=== PATIENT | female | born 1985 | race Native Hawaiian/Other Pacific Islander ===

== ENCOUNTER 2020-07-10 15:07 | Outpatient (REF) | payer MEDICAID, SELFPAY ==
[2020-07-11 12:44] LABS: BV Int Neg Control Negative (Negative); BV Int Pos Control Positive (Positive)
[2020-07-11 19:17] LABS: C. trachomatis RNA TMA NOT DETECTED (NOT DETECTED); N. gonorrhoeae RNA TMA NOT DETECTED (NOT DETECTED)
[2020-07-14 15:47] LABS: HPV mRNA E6/E7 rflx Not Detected (Not Detected)
== END 2020-07-10 15:08 | disposition home or self-care (01) ==
LOC: HO.LAB 15:07
PROVIDERS: Visit Provider Advanced Practice Midwife
DX: Z01.419 Encounter for gynecological examination (general) (routine) without abnormal findings (principal); B20 Human immunodeficiency virus [HIV] disease; E66.01 Morbid (severe) obesity due to excess calories; Z20.2 Contact with and (suspected) exposure to infections with a predominantly sexual mode of transmission
CPT/HCPCS: 36415; 87480; 87491; 87510; 87591; 87624; 87660; 88141; 88142

== ENCOUNTER 2020-10-17 11:36 | Outpatient (REF) | payer MEDICAID, SELFPAY ==
[2020-10-17 16:16] LABS: CT PCR NOT DETECTED (Not Detect.); NG PCR NOT DETECTED (Not Detect.)
[2020-10-18 12:02] LABS: BV Int Neg Control Negative (Negative); BV Int Pos Control Positive (Positive)
== END 2020-10-17 11:37 | disposition home or self-care (01) ==
LOC: HO.LAB 11:36
PROVIDERS: Visit Provider Advanced Practice Midwife
DX: Z01.419 Encounter for gynecological examination (general) (routine) without abnormal findings (principal); A59.9 Trichomoniasis, unspecified; B20 Human immunodeficiency virus [HIV] disease; Z20.2 Contact with and (suspected) exposure to infections with a predominantly sexual mode of transmission
CPT/HCPCS: 87480; 87491; 87510; 87591; 87660; 99212

== ENCOUNTER 2021-10-21 13:59 | Outpatient (REF) | payer MEDICAID, SELFPAY ==
[2021-10-22 05:14] LABS: CT PCR NOT DETECTED (Not Detect.); NG PCR NOT DETECTED (Not Detect.)
[2021-10-22 15:48] LABS: BV Int Neg Control Negative (Negative); BV Int Pos Control Positive (Positive)
[2021-10-23 17:56] LABS: HPV mRNA E6/E7 rflx Not Detected (Not Detected)
== END 2021-10-21 14:00 | disposition home or self-care (01) ==
LOC: HO.LAB 13:59
PROVIDERS: Visit Provider Advanced Practice Midwife
DX: Z01.411 Encounter for gynecological examination (general) (routine) with abnormal findings (principal); Z11.51 Encounter for screening for human papillomavirus (HPV); Z20.2 Contact with and (suspected) exposure to infections with a predominantly sexual mode of transmission; B20 Human immunodeficiency virus [HIV] disease; E66.01 Morbid (severe) obesity due to excess calories
CPT/HCPCS: 87480; 87491; 87510; 87591; 87624; 87660; 88142

== ENCOUNTER 2022-11-08 15:07 | Outpatient (REF) | payer MEDICAID, SELFPAY ==
--- NOTE | ~2022-11-08 | XR_ITS ---
EXAMINATION: XR SHOULDER, RIGHT CLINICAL INFORMATION: Pain x2 weeks. No injury. COMPARISON: None available. TECHNIQUE: AP external rotation, Grashey, scapular Y, and axillary views of the right shoulder. FINDINGS: There is mild loss of right AC joint space with periarticular spurring. No visible fracture, dislocation or lytic process seen. The glenohumeral joint space is normal. No soft tissue calcification or swelling seen. XR/XR shoulder RT min 2V IMPRESSION: Mild degenerative changes right AC joint. No visible acute fracture or dislocation seen.
== END 2022-11-08 15:08 | disposition home or self-care (01) ==
LOC: HO.HHCX 15:07
PROVIDERS: Visit Provider Internal Medicine
DX: M25.511 Pain in right shoulder (principal)
CPT/HCPCS: 73030

== ENCOUNTER 2023-01-27 15:01 | Outpatient (AMB) | payer MEDICAID, SELFPAY ==
--- NOTE | 2023-01-27 15:12 | A.OFFVIS_ITS ---
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 See her past medical history for issues of concern. She has the Mirena IUD and it in October so she wants to talk about replacing it. She says she is not a sexually active as she used to be and is less interested in having sex and it has been a few months but still she would like protection for prevention. She says her HIV status is really good and she is still undetectable. She sees Dr. Murray at the [facility] now. she is pretty tired because she gets up at 04:30 every morning to go to work at 6 and works till 230 in a [place]. [facility] Medical History Cervical cancer screening HIV disease Surgical History Hx of gastric bypass Family History Mother HTN (hypertension) Maternal Grandmother Pancreatic cancer Social History Alcohol intake: current Alcohol intake frequency: holidays/special occasions only Gender identity: Female Female Reproductive History Menstrual Age of Menarche: 10 control method: none and progestin IUCD Total pregnancies: 2 Full term: 2 Date of last pap smear: 10/22/21 History of abnormal pap smear: Yes Physical Exam Vital Signs: Last Vital Signs BP 134/76 01/27/23 15:13 BMI result Body Mass Index 39.2 Const General: healthy appearing, comfortable, no acute distress, well developed and alert Nutritional Appearance: average body habitus Orientation/consciousness: patient oriented x3 Limitations: no limitations HEENT Head: Yes normocephalic Neck Neck: Yes normal visual inspection Chest Chest palpation & inspection: normal inspection of the chest Breast/axilla inspection: normal inspection of the breasts and normal inspection of the axillae Breast/axilla palpation: normal palpation of the breasts and normal palpation of the axillae Resp Effort & Inspection: normal respiratory effort GI Inspection: Yes normal to inspection, No Abdominal wall edema and No distended Palpation (GI): Soft to palpation and nontender Other: Parous cervix with thin slightly yellowish tinge to clear discharge Mirena strings visible. General: Yes bladder normal to palpation External Female Exam: normal external appearance and normal appearance of the urethra Speculum Exam - Vagina: normal appearance of the vagina, normal palpation and normal vaginal discharge Speculum Exam - Cervix: normal appearance of the cervix, normal palpation and nontender Bimanual exam- vagina & uterus: normal bimanual exam, normal palpation, uterine size normal, bladder normal to palpation, consistency normal, normal palpation, uterine mobility normal, uterine shape normal, No Cervical tenderness present, non-tender and no cervical motion tenderness Bimanual Exam- Adnexa, other: normal adnexae, no masses, normal and No adnexal tenderness Neuro General: patient oriented x3 Assessment & Plan Assessment & Plan (1) Well woman exam with routine gynecological exam: Code(s): Z01.419 - Encounter for gynecological examination (general) (routine) without abnormal findings (2) Potential exposure to STD: Code(s): Z20.2 - Contact with and (suspected) exposure to infections with a predominantly sexual mode of transmission (3) Cervical cancer screening: Comment: HIV +, 07/14/20-pap neg , hpv neg ( trich )-cont yearly screening... Code(s): Z12.4 - Encounter for screening for malignant neoplasm of cervix (4) Well woman exam with routine gynecological exam: Code(s): Z01.419 - Encounter for gynecological examination (general) (routine) without abnormal findings (5) Checking of intrauterine device: Comment: Patient says it is in October will replace at next visit Code(s): Z30.431 - Encounter for routine checking of intrauterine contraceptive device (6) HIV disease: Code(s): B20 - Human immunodeficiency virus [HIV] disease (7) Obesity, morbid, BMI 40.0-49.9: Code(s): E66.01 - Morbid (severe) obesity due to excess calories (8) Family planning counseling: Code(s): Z30.09 - Encounter for other general counseling and advice on contraception Plan -----Discussed in this visit the following: healthy balanced diet, regular and consistent exercise, getting recommended health screens, doing the best she can for her particular health concerns, kegel exercises, pap smear screening and followup recommendations, mammography screening and SBE, normal changes in cycles in her life stage--- discussed her currently undetectable HIV status which is very good. Discussed that it is very common to have less interest in sex as 1 gets older and she is not the only 1. Discussed replacing the Mirena she has had 2 of them and has considered whether not to get her tubes tied but I did tell her that she could in fact use this method of control through menopause.. We will schedule insertion /replacement at her convenience. Discussed signs and symptoms of fertility repeat turning should it stop functioning. Discussed that I will order a mammogram for her because she is about to turn 38 next week. Discussed self-care in general and how hard it can be to get enough sleep when she has to get up so early. Orders: Orders Bacterial Vaginosis Panel Today Z20.2 - Contact with and (suspected) exposure to infections with a predominantly sexual mode of transmission CT NG by PCR Today Z20.2 - Contact with and (suspected) exposure to infections with a predominantly sexual mode of transmission Pap Smear Today Z01.419 - Encounter for gynecological examination (general) (routine) without abnormal findings MM tomosynthesis screening BI Today Z01.419 - Encounter for gynecological examination (general) (routine) without abnormal findings, Z12.4 - Encounter for screening for malignant neoplasm of cervix, Z30.431 - Encounter for routine checking of intrauterine contraceptive device Coding Level of Care Code Est Pt Prev Care 18-39y([id number]) Diagnoses Well woman exam with routine gynecological exam Z01.419 Potential exposure to STD Z20.2 Cervical cancer screening Z12.4 Checking of intrauterine device Z30.431 HIV disease B20 Obesity, morbid, BMI 40.0-49.9 E66.01 Family planning counseling Z30.09
[2023-01-27 15:13] VITALS: BP 134/76; BMI 39.2
== END 2023-01-27 16:13 | disposition home or self-care (01) ==
LOC: HO.HWS 15:01
PROVIDERS: Visit Provider Advanced Practice Midwife
DX: Z01.419 Encounter for gynecological examination (general) (routine) without abnormal findings (principal); Z20.2 Contact with and (suspected) exposure to infections with a predominantly sexual mode of transmission; B20 Human immunodeficiency virus [HIV] disease; E66.01 Morbid (severe) obesity due to excess calories; Z30.09 Encounter for other general counseling and advice on contraception
CPT/HCPCS: 99395

== ENCOUNTER 2023-01-27 15:01 | Outpatient (REF) | payer MEDICAID, SELFPAY ==
[2023-01-27 18:42] LABS: CT PCR NOT DETECTED (Not Detect.); NG PCR NOT DETECTED (Not Detect.)
[2023-01-28 13:21] LABS: BV Int Neg Control Negative (Negative); BV Int Pos Control Positive (Positive)
[2023-02-04 02:14] LABS: HPV mRNA E6/E7 rflx Not Detected (Not Detected)
== END 2023-01-27 15:02 | disposition home or self-care (01) ==
LOC: HO.LNP 15:01
PROVIDERS: Visit Provider Advanced Practice Midwife
DX: Z01.419 Encounter for gynecological examination (general) (routine) without abnormal findings (principal); E66.01 Morbid (severe) obesity due to excess calories; B20 Human immunodeficiency virus [HIV] disease; Z20.2 Contact with and (suspected) exposure to infections with a predominantly sexual mode of transmission; Z79.899 Other long term (current) drug therapy
CPT/HCPCS: 0353U; 87480; 87510; 87624; 87660; 88142; 99395

== ENCOUNTER 2023-02-15 14:29 | Outpatient (REF) | payer MEDICAID, SELFPAY ==
[2023-02-16 09:36] LABS: CT PCR NOT DETECTED (Not Detect.); NG PCR NOT DETECTED (Not Detect.)
[2023-02-16 10:45] LABS: BV Int Neg Control Negative (Negative); BV Int Pos Control Positive (Positive)
== END 2023-02-15 14:30 | disposition home or self-care (01) ==
LOC: HO.LNP 14:29
PROVIDERS: PCP Internal Medicine; Visit Provider Advanced Practice Midwife
DX: B20 Human immunodeficiency virus [HIV] disease (principal); E66.01 Morbid (severe) obesity due to excess calories; Z30.433 Encounter for removal and reinsertion of intrauterine contraceptive device; Z20.2 Contact with and (suspected) exposure to infections with a predominantly sexual mode of transmission; Z79.899 Other long term (current) drug therapy
CPT/HCPCS: 0353U; 58300; 58301; 81025; 87480; 87510; 87660; J7298

== ENCOUNTER 2023-02-15 14:29 | Outpatient (AMB) | payer MEDICAID, SELFPAY ==
[2023-02-15 14:37] VITALS: BP 116/76; BMI 39.7
--- NOTE | 2023-02-15 14:37 | A.OFFVIS_ITS ---
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 Required: No Information Interpreted: non-clinical & clinical Store Operations Specialist: Store Operations Specialist Present (Noemy) Allergies No Known Allergies Allergy (Verified 02/15/23 14:39) Medication List - Last Reconciled 02/15/23 by Re Sweeney CNM [id number]-bleagvml-wdgtkl ala 200-25-25 mg (Odefsey) 1 tab PO DAILY levonorgestrel (Mirena) intrauterine multivitamin (Daily Multi-Vitamin tablet) 1 tab PO DAILY Is last menstrual period known: No Post menopausal: No HPI Mirena replacement/DO NOT RS HPI Details Patient is here for her IUD replacement she has a Mirena this 1 will be her 3rd. She has an 11-year-old and 12-year-old she just turned 38 the other day and she went to the beach for her birthday. She is taking her HIV medication and she is still undetectable. She has no symptoms of bacterial vaginosis so she declined treatment for the Gardnerella and she has no abnormal discharge we will repeat cultures today just to be on the safe side she has no worries at all about other STDs other than the 1 she knows about. [facility] Medical History Cervical cancer screening HIV disease Surgical History Hx of gastric bypass Family History Mother HTN (hypertension) Maternal Grandmother Pancreatic cancer Social History Alcohol intake: current Alcohol intake frequency: holidays/special occasions only Gender identity: Female Female Reproductive History Menstrual Age of Menarche: 10 control method: progestin IUCD Date of last pap smear: 01/28/23 (pending) Physical Exam Vital Signs: Last Vital Signs BP 116/76 02/15/23 14:37 BMI result Body Mass Index 39.7 Other: Cervix parous posterior uterus anterior nontender clear clear discharge which appears very normal Mirena strings visible about 0.5 cm from os see procedure for removal and insertion which went with ease patient did experience pain with the insertion and with the sounding but the procedure went extremely smoothly and there was no resistance or obstruction. External Female Exam: normal external appearance Speculum Exam - Vagina: normal appearance of the vagina and normal vaginal discharge Speculum Exam - Cervix: normal appearance of the cervix Bimanual exam- vagina & uterus: normal bimanual exam, uterine size normal, consistency normal, uterine mobility normal, uterine shape normal and non-tender Bimanual Exam- Adnexa, other: normal adnexae, no masses and No adnexal tenderness Office Procedures IUD Insert/Removal Details Details: ---Patient is here for her IUD removal and insertion. Bimanual exam was done. Her uterus is firm, nontender, and appropriate sized, and is anteverted . The IUD strings were grasped with ring forceps, and as patient coughed the IUD was removed easily with 1 tug. ---The cervix was recleaned with Betadine. Tenaculum was placed on the cervix slowly to minimize cramping. The uterus was sounded slowly and gently she show a measurement of 8 cm. The IUD was removed from its package, after checking identifying information and lot dates and expiration dates and and gently inserted into the os, as per the IUD insertion procedure. The strings were then trimmed to 3-4 centimetres. The tenaculum was removed and gentle pressure applied with a swab, until any bleeding subsided from the tenaculum sites. The speculum was gently removed. The patient sat up. I Reviewed what to expect, and what indications would necessitate a call. Pt to call for fever, untoward pain or cramping. I reviewed any appropriate backup method. Pt to return for recheck as scheduled. 20301-MZV Insertion 28723-OPZ Removal Procedure code (CPT) selection complete Office Ashley Pinto Performing Provider: Re Sweeney CNM Administered by: KENDRA Youssef on 02/15/23 15:15 Dose Route Admin Location Lot Number Expiration Date [place] Weapons Engineer 1 device intrauterine c-obgyn [id number] 04/25/25 [id number] [employer] Results AMB Test Urine AMB Test Urine Negative Last Edit by KENDRA Youssef on 02/15/23 14:45 Results Reviewed Results Reviewed: Laboratory Last Values Tst Clinic Negative 02/15/23 14:45 Name: Maria Luz Castellano Age/Sex: 35/F : 1985 Unit#: [id number] Attend Dr: Re Sweeney CNM Re07/10/20 Status: DEP [facility]: SPEC : [id number] KERRIE: 07/10/20-UNK STATUS: COMP REQ : [id number] RECD: 07/11/20-[address]: Re Sweeney COMP: 07/11/20-1244 ENTERED: 07/10/20-[address]: ORDERED: BV Panel Test Result Flag Reference Site Trichomonas DNA Positive A Negative Gardnerella DNA Positive A Negative Stephanie DNA Negative Negative Name: Maria Luz Castellano Age/Sex: 37/F : 1985 Unit#: [id number] Attend Dr: Re Sweeney Re01/27/23 Status: DEP [facility] Dis[facility]: SPEC : [id number] KERRIE: 01/27/23-150 STATUS: COMP REQ : [id number] RECD: 01/27/23-[address]: Re Sweeney COMP: 01/28/23-1321 ENTERED: 01/27/23-[address]: Physician,None ORDERED: BV Panel Test Result Flag Reference Site Trichomonas DNA Negative Negative Gardnerella DNA Positive A Negative Stephanie DNA Negative Negative Assessment & Plan Assessment & Plan (1) Potential exposure to STD: Code(s): Z20.2 - Contact with and (suspected) exposure to infections with a predominantly sexual mode of transmission (2) Obesity, morbid, BMI 40.0-49.9: Code(s): E66.01 - Morbid (severe) obesity due to excess calories (3) HIV disease: Code(s): B20 - Human immunodeficiency virus [HIV] disease (4) Cervical cancer screening: Comment: HIV +, 1/18/21-pap neg , hpv neg ( trich )-cont yearly screening... Code(s): Z12.4 - Encounter for screening for malignant neoplasm of cervix (5) Encounter for removal and reinsertion of intrauterine contraceptive device (IUD): Code(s): Z30.433 - Encounter for removal and reinsertion of intrauterine contraceptive device Plan See the procedure section for the process of removal and re insertion of the Mirena IUD patient did find it and painful but had no vasovagal response at all process went very smooth and with no resistance. As her discharge appeared completely clear and healthy I did not feel there was any need for treatment of the asymptomatic Gardnerella I did repeat cultures. Patient was instructed to call and or seek emergency care if she had really severe pain or signs and symptoms of infection I recommend she wait several days before having intercourse until she .feels completely comfortable. Patient left the office with no cramping Orders: Orders Bacterial Vaginosis Panel Today Z20.2 - Contact with and (suspected) exposure to infections with a predominantly sexual mode of transmission CT NG by PCR Today Z20.2 - Contact with and (suspected) exposure to infections with a predominantly sexual mode of transmission AMB IUD Insertion/Removal - Practice Supplied Today Z30.430 - Encounter for insertion of intrauterine contraceptive device AMB HCG Urine Test Today Z32.02 - Encounter for test, result negative Coding Level of Care Code Est Pt Level 3 (37905) Diagnoses Potential exposure to STD Z20.2 Obesity, morbid, BMI 40.0-49.9 E66.01 HIV disease B20 Cervical cancer screening Z12.4 Encounter for removal and reinsertion of intrauterine contraceptive device (IUD) Z30.433 CPT Codes Details - CPT: 88378-JSM Insertion ([id number]) Details - CPT: 36011-ZVF Removal ([id number])
== END 2023-02-15 15:16 | disposition home or self-care (01) ==
LOC: HO.HWS 14:29
PROVIDERS: PCP Internal Medicine; Visit Provider Advanced Practice Midwife
DX: Z30.430 Encounter for insertion of intrauterine contraceptive device (principal); B20 Human immunodeficiency virus [HIV] disease; Z32.02 Encounter for pregnancy test, result negative
CPT/HCPCS: 58300; 58301

== ENCOUNTER 2023-02-22 14:55 | Outpatient (REF) | payer MEDICAID, SELFPAY ==
--- NOTE | ~2023-02-22 | MM_ITS ---
EXAMINATION: MM SCREENING DIGITAL BREAST TOMOSYNTHESIS, BILATERAL CLINICAL INFORMATION: Screening. Asymptomatic. COMPARISON: Mammography: This is a baseline study. TECHNIQUE: Digital breast tomosynthesis is performed in both the craniocaudal and mediolateral oblique views along with computer-aided detection (CAD). Synthesized 2D images are generated from the tomosynthesis. FINDINGS: The breasts are almost entirely fatty (ACR BI-RADS breast composition Category a). There are no significant masses, abnormal calcifications, or other abnormalities. MM/MM tomosynthesis screening BI IMPRESSION: No mammographic evidence of malignancy. ASSESSMENT: BI-RADS BI-RADS 1 - Negative RECOMMENDATION: Routine annual mammography screening. 1 year F/U This examination should not preclude the clinical evaluation of a suspicious palpable abnormality. This patient's information was entered into a reminder system with a target due date for their next mammogram.
== END 2023-02-22 14:56 | disposition home or self-care (01) ==
LOC: HO.MAMMO 14:55
PROVIDERS: PCP Internal Medicine; Visit Provider Advanced Practice Midwife
DX: Z12.31 Encounter for screening mammogram for malignant neoplasm of breast (principal)
CPT/HCPCS: 77063; 77067

== ENCOUNTER → 2023-02-22 15:00 | Outpatient (BNV) | payer MEDICAID, SELFPAY | PROVIDERS: PCP Internal Medicine; Visit Provider Radiology Diagnostic Radiology | DX: Z12.31 Encounter for screening mammogram for malignant neoplasm of breast (principal) | CPT/HCPCS: 77063; 77067 ==

== ENCOUNTER 2023-05-31 12:26 | Outpatient (REF) | payer MEDICAID, SELFPAY ==
[2023-05-31 13:19] LABS: MANUAL DIFF FLAG NO
[2023-05-31 13:31] LABS: Basophils Percent Auto 0.3 % (0-2); Eosinophils Percent Auto 0.1 % (0-4); Hematocrit 37.2 % (37.0-47.0); Hemoglobin 12.1 g/dl (12.0-16.0); Imm Gran Abs Auto 0.04 X10*3/uL (0.00-0.03); Imm Gran Pct Auto 0.4 % (0.0-0.4); Lymphocytes Absolute Auto 2.6 X10*3/uL (1.2-4.9); Lymphocytes Percent Auto 25.6 % (20-40); Mean Corpuscular HGB Conc 32.5 g/dl (31.0-35.0); Mean Corpuscular Hemoglobin 27.9 pg (27.0-33.0); Mean Corpuscular Volume 85.7 fL (80.0-98.0); Monocytes Absolute Auto 0.5 X10*3/uL (0.1-1.2); Neutrophils Absolute Auto 6.9 x10*3/uL (2.0-8.3); Neutrophils Percent Auto 68.6 % (45-73); Platelet Count 335 X10*3/uL (160-400); Red Blood Count 4.34 X10*6/uL (4.20-5.50); Red Cell Distribution Width 12.9 % (11.0-16.0); White Blood Count 10.1 X10*3/uL (4.8-10.8)
[2023-05-31 14:47] LABS: Alanine Aminotransferase 14 U/L (0-31); Albumin Level 4.6 g/dL (3.5-5.0); Alkaline Phosphatase 54 U/L (39-117); Anion Gap 12 (12-20); Aspartate Amino Transferase 20 U/L (5-31); Bilirubin Total 0.4 mg/dL (0.0-1.0); Blood Urea Nitrogen 8 mg/dL (9-16); Carbon Dioxide 26 mmol/L (22-29); Chloride 103 mmol/L (96-108); Estimated Glomerular Filt Rate > 60; Glucose Random 99 mg/dL (60-115); Potassium 3.7 mmol/L (3.3-5.1); Sodium 137 mmol/L (135-145); Total Protein 8.1 g/dL (6.5-8.0)
[2023-06-01 08:04] LABS: Syphilis Screen Nonreactive (Nonreactive)
[2023-06-02 10:08] LABS: Absolute CD3 Count 1548 cells/uL (840-3060); Absolute CD4 Count 1153 cells/uL (490-1740); Absolute CD8 Count 415 cells/uL (180-1170); Absolute Lymphocytes 2396 cells/uL (850-3900); CD4 CD8 Ratio 2.78 (0.86-5.00); Percent CD3 Cells 65 % (57-85); Percent CD4 Cells 48 % (30-61); Percent CD8 Cells 17 % (12-42)
[2023-06-02 16:19] LABS: TS Negative Control Passed; TS Panel A 0; TS Panel B 0; TS Positive Control Passed; TSpotTB Negative (Negative)
[2023-06-04 19:04] LABS: HIV RNA PCR Qn Copies 42 copies/mL (NOT DETECTED); HIV RNA PCR Qn Log Copies 1.62 (NOT DETECTED)
[2023-06-04 19:53] LABS: HCV Log PCR <1.18 NOT DETECTED Log IU/mL (NOT DETECTED); HepC Viral Load <15 NOT DETECTED IU/mL (NOT DETECTED)
== END 2023-05-31 12:27 | disposition home or self-care (01) ==
LOC: HO.HHCL 12:26
PROVIDERS: Visit Provider Student in an Organized Health Care Education/Training Program
DX: Z11.1 Encounter for screening for respiratory tuberculosis (principal); B20 Human immunodeficiency virus [HIV] disease
CPT/HCPCS: 36415; 80053; 85025; 86359; 86360; 86481; 86780; 87522; 87536

== ENCOUNTER 2023-08-03 10:08 | Outpatient (REF) | payer MEDICAID, SELFPAY ==
[2023-08-03 11:45] LABS: MANUAL DIFF FLAG NO
[2023-08-03 11:51] LABS: Basophils Percent Auto 0.6 % (0-2); Eosinophils Absolute Auto 0.1 X10*3/uL (0.0-0.4); Hematocrit 37.1 % (37.0-47.0); Hemoglobin 12.3 g/dl (12.0-16.0); Imm Gran Abs Auto 0.01 X10*3/uL (0.00-0.03); Imm Gran Pct Auto 0.2 % (0.0-0.4); Lymphocytes Absolute Auto 1.8 X10*3/uL (1.2-4.9); Lymphocytes Percent Auto 34.7 % (20-40); Mean Corpuscular HGB Conc 33.2 g/dl (31.0-35.0); Mean Corpuscular Hemoglobin 28.6 pg (27.0-33.0); Mean Corpuscular Volume 86.3 fL (80.0-98.0); Mean Platelet Volume 11.3 fL (9.4-12.3); Monocytes Absolute Auto 0.4 X10*3/uL (0.1-1.2); Neutrophils Percent Auto 56.5 % (45-73); Platelet Count 310 X10*3/uL (160-400); Red Cell Distribution Width 13.2 % (11.0-16.0); White Blood Count 5.3 X10*3/uL (4.8-10.8)
[2023-08-03 12:11] LABS: Estimated Average Glucose 123 mg/dL; Hemoglobin A1c % 5.9 % (<6.0)
[2023-08-03 13:04] LABS: Alanine Aminotransferase 14 U/L (0-31); Albumin Level 4.1 g/dL (3.5-5.0); Anion Gap 9 (12-20); Aspartate Amino Transferase 17 U/L (5-31); Bilirubin Direct 0.2 mg/dL (0.0-0.5); Bilirubin Total 0.4 mg/dL (0.0-1.0); Blood Urea Nitrogen 8 mg/dL (9-16); Calcium 9.3 mg/dL (8.4-10.2); Carbon Dioxide 26 mmol/L (22-29); Chloride 109 mmol/L (96-108); Cholesterol 163 mg/dL (<200); Estimated Glomerular Filt Rate > 60; Glucose Random 140 mg/dL (60-115); HDL Cholesterol 36 mg/dL (>40); LDL Cholesterol Calculated 107 mg/dL (<100); Potassium 3.6 mmol/L (3.3-5.1); Sodium 140 mmol/L (135-145); Total Protein 7.2 g/dL (6.5-8.0); Triglycerides 101 mg/dL (<150)
[2023-08-03 13:12] LABS: Alkaline Phosphatase 57 U/L (39-117)
== END 2023-08-03 10:09 | disposition home or self-care (01) ==
LOC: HO.HHCL 10:08
PROVIDERS: Visit Provider Internal Medicine
DX: Z00.00 Encounter for general adult medical examination without abnormal findings (principal)
CPT/HCPCS: 36415; 80048; 80061; 80076; 83036; 85025

== ENCOUNTER 2024-01-10 18:10 | Outpatient (REF) | payer MEDICAID, SELFPAY ==
[2024-01-11 13:10] LABS: Bacterial Vaginosis PCR POSITIVE (Negative); Candida Group PCR NOT DETECTED (Not Detect); Candida glab krusei PCR NOT DETECTED (Not Detect); Trichomonas vaginalis PCR NOT DETECTED (Not Detect)
[2024-01-11 13:40] LABS: CT PCR NOT DETECTED (Not Detect.); NG PCR DETECTED (Not Detect.)
== END 2024-01-10 18:11 | disposition home or self-care (01) ==
LOC: HO.HHCLNP 18:10
PROVIDERS: Visit Provider Internal Medicine
DX: R30.0 Dysuria (principal); N93.8 Other specified abnormal uterine and vaginal bleeding
CPT/HCPCS: 0352U; 87086; 87491; 87591

== ENCOUNTER 2024-01-16 15:58 | Outpatient (REF) | payer MEDICAID, SELFPAY ==
--- NOTE | ~2024-01-16 | US_ITS ---
EXAMINATION: US RETROPERITONEAL LIMITED (RENAL ONLY) CLINICAL INFORMATION: Hematuria. Rule out kidney stones. COMPARISON: None available. TECHNIQUE: Real-time imaging of the kidneys. Technically limited study secondary to body habitus. FINDINGS: RIGHT KIDNEY: 10.3 x 5.5 x 6.5 cm (SAG x AP x TRV). The kidney is normal in size, contour, and echogenicity. Renal cortical thickness is normal. No calculi or focal parenchymal lesions. No hydronephrosis. LEFT KIDNEY: 10.7 x 5.8 x 6.4 cm (SAG x AP x TRV). The kidney is normal in size, contour, and echogenicity. Renal cortical thickness is normal. No calculi or focal parenchymal lesions. No hydronephrosis. ADDITIONAL FINDINGS: There are a few echogenic gallstones. US/US renal BI IMPRESSION: Unremarkable appearance of the kidneys. Cholelithiasis..
== END 2024-01-16 15:59 | disposition home or self-care (01) ==
LOC: HO.US 15:58
PROVIDERS: PCP Internal Medicine; Visit Provider Internal Medicine
DX: N93.8 Other specified abnormal uterine and vaginal bleeding (principal)
CPT/HCPCS: 76775

== ENCOUNTER 2024-02-07 14:53 | Outpatient (REF) | payer MEDICAID, SELFPAY ==
[2024-02-07 16:10] LABS: MANUAL DIFF FLAG NO
[2024-02-07 16:21] LABS: Basophils Percent Auto 0.4 % (0-2); Eosinophils Absolute Auto 0.1 X10*3/uL (0.0-0.4); Eosinophils Percent Auto 1.1 % (0-4); Hematocrit 34.6 % (37.0-47.0); Hemoglobin 11.5 g/dl (12.0-16.0); Imm Gran Abs Auto 0.01 X10*3/uL (0.00-0.03); Imm Gran Pct Auto 0.1 % (0.0-0.4); Lymphocytes Absolute Auto 2.2 X10*3/uL (1.2-4.9); Lymphocytes Percent Auto 30.3 % (20-40); Mean Corpuscular HGB Conc 33.2 g/dl (31.0-35.0); Mean Corpuscular Hemoglobin 28.7 pg (27.0-33.0); Mean Corpuscular Volume 86.3 fL (80.0-98.0); Mean Platelet Volume 10.5 fL (9.4-12.3); Monocytes Absolute Auto 0.6 X10*3/uL (0.1-1.2); Monocytes Percent Auto 7.9 % (2-11); Neutrophils Absolute Auto 4.3 x10*3/uL (2.0-8.3); Neutrophils Percent Auto 60.2 % (45-73); Platelet Count 320 X10*3/uL (160-400); Red Blood Count 4.01 X10*6/uL (4.20-5.50); Red Cell Distribution Width 13.1 % (11.0-16.0); White Blood Count 7.2 X10*3/uL (4.8-10.8)
[2024-02-07 16:28] LABS: Alanine Aminotransferase 13 U/L (0-31); Albumin Level 4.3 g/dL (3.5-5.0); Alkaline Phosphatase 53 U/L (39-117); Anion Gap 10 (12-20); Aspartate Amino Transferase 19 U/L (5-31); Bilirubin Total 0.2 mg/dL (0.0-1.0); Blood Urea Nitrogen 11 mg/dL (9-16); Calcium 9.5 mg/dL (8.4-10.2); Carbon Dioxide 27 mmol/L (22-29); Chloride 105 mmol/L (96-108); Estimated Glomerular Filt Rate > 60; Glucose Random 99 mg/dL (60-115); Potassium 3.9 mmol/L (3.3-5.1); Sodium 138 mmol/L (135-145); Total Protein 7.6 g/dL (6.5-8.0)
[2024-02-07 16:31] LABS: Estimated Average Glucose 131 mg/dL; Hemoglobin A1c % 6.2 % (<6.0)
[2024-02-08 12:34] LABS: Toxoplasma IgM Antibody <8.00 AU/mL
[2024-02-09 14:14] LABS: HIV RNA PCR Qn Copies NOT DETECTED copies/mL (NOT DETECTED); HIV RNA PCR Qn Log Copies NOT DETECTED (NOT DETECTED)
[2024-02-09 15:21] LABS: Iron 50 mcg/dL (30-160); Percent Iron Saturation 22 % (15-50); Total Iron Binding Capacity 231 mcg/dL (228-428); Unsaturated Iron Binding 181 ug/dL
[2024-02-09 15:42] LABS: Ferritin 115 ng/mL (10-250)
[2024-02-09 17:58] LABS: RPR Rapid Plasma Reagin NON-REACTIVE (NON-REACTIVE)
[2024-02-11 15:33] LABS: Absolute CD3 Count 1399 cells/uL (840-3060); Absolute CD4 Count 1024 cells/uL (490-1740); Absolute CD8 Count 404 cells/uL (180-1170); Absolute Lymphocytes 2171 cells/uL (850-3900); CD4 CD8 Ratio 2.53 (0.86-5.00); Percent CD3 Cells 64 % (57-85); Percent CD4 Cells 47 % (30-61); Percent CD8 Cells 19 % (12-42)
== END 2024-02-07 14:54 | disposition home or self-care (01) ==
LOC: HO.HHCL 14:53
PROVIDERS: Visit Provider Student in an Organized Health Care Education/Training Program
DX: B20 Human immunodeficiency virus [HIV] disease (principal); N93.8 Other specified abnormal uterine and vaginal bleeding
CPT/HCPCS: 36415; 80053; 82728; 83036; 83540; 85025; 86359; 86360; 86592; 86777; 86778; 87536

== ENCOUNTER 2024-02-13 | Outpatient (REF) | payer MEDICAID, SELFPAY ==
[2024-02-14 14:18] LABS: CT PCR NOT DETECTED (Not Detect.); NG PCR NOT DETECTED (Not Detect.)
== END 2024-02-13 00:01 | disposition home or self-care (01) ==
LOC: HO.HHCLNP
PROVIDERS: Internal Medicine; Visit Provider Student in an Organized Health Care Education/Training Program
DX: B20 Human immunodeficiency virus [HIV] disease (principal)
CPT/HCPCS: 87491; 87591; 88112

== ENCOUNTER 2024-04-18 12:20 | Outpatient (REF) | payer OTHER, SELFPAY ==
[2024-04-24 15:13] LABS: HPV mRNA E6/E7 Detected (Not Detected)
== END 2024-04-18 12:21 | disposition home or self-care (01) ==
LOC: HO.HHCLNP 12:20
PROVIDERS: Visit Provider Internal Medicine
DX: Z12.4 Encounter for screening for malignant neoplasm of cervix (principal)
CPT/HCPCS: 87624; 88175

== ENCOUNTER 2024-07-10 10:45 | Outpatient (AMB) | payer OTHER, SELFPAY ==
--- NOTE | 2024-07-10 10:48 | MHC.OFFVIS ---
Vital Signs 07/10/24 11:05 Height 5 ft 6 in Weight 254 lb BMI 41.0 Handedness Right Intake Visit Reasons: New PT - right shoulder pain Intake Note: Maria Luz is a 39 year old right hand dominant female who presents today for as a new patient for a evaluation of her right shoulder pain. Patient reports off and on pain for 6 months. She mentions that her pain is on the lateral aspect of the shoulder and sometimes radiates up to her neck. Patient notices that her pain is worse when she is performing repetitive movements at work. She expresses that she tried some muscle relaxer and ibuprofen. Allergies No Known Allergies Allergy (Verified 07/10/24 11:04) HPI HPI New PT - right shoulder pain: Details: Ms. Castellano is a 39-year-old right-hand dominant female who presents to the office today for evaluation of right shoulder pain. She reports that the pain has been present for the past year. However, over the past 6 months her pain has become more consistent. She denies any injury or trauma. 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 She believes that this has contributed to her pain. The patient does not have any pain while in the office today but when present the patient reports pain along the posterior aspect of her neck as well as the lateral aspect of the neck that travels down into the shoulder. She does report an instance of numbness and tingling into the right hand. 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 No ecchymosis, erythema, or edema. Full shoulder ROM in all planes. Negative cross-body reach. Negative empty can. Negative drop arm. NVI. Assessment & Plan Assessment & Plan (1) Cervical radicular pain: Code(s): M54.12 - Radiculopathy, cervical region Category: Medical Plan Ms. Castellano is a 39-year-old right-hand dominant female who presents to the office today for evaluation of right shoulder pain. She reports that the pain has been present for the past year. However, over the past 6 months her pain has become more consistent. She denies any injury or trauma. 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 She believes that this has contributed to her pain. The patient does not have any pain while in the office today but when present the patient reports pain along the posterior aspect of her neck as well as the lateral aspect of the neck that travels down into the shoulder. She does report an instance of numbness and tingling into the right hand. She also reports that when she has pain she is unable to turn her head [id number] due to pain. While in the office today, I discussed with the patient that due to her normal physical exam of the right shoulder and the nature of her symptoms radiating from the neck to the shoulder as well as an occasional numbness in the right hand this is likely due to cervical pathology. I have recommended that she follow up with Dr. Gibson for further evaluation and treatment of her C-spine. Follow up with Orthopedics p.r.n., sooner if needed. X-rays obtained in the office today of the right shoulder reviewed by me, and are negative for any acute fracture or dislocation. 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 Orders: Orders XR shoulder RT min 2V Today M25.519 - Pain in unspecified shoulder Coding Level of Care Code New Pt Level 3 (29779) Diagnoses Cervical radicular pain M54.12
[2024-07-10 11:05] VITALS: BMI 41.0
== END 2024-07-10 11:17 | disposition home or self-care (01) ==
PROVIDERS: PCP Student in an Organized Health Care Education/Training Program; Visit Provider Physician Assistant
DX: M54.12 Radiculopathy, cervical region (principal)
CPT/HCPCS: 99203

== ENCOUNTER 2024-07-10 12:22 | Outpatient (REF) | payer OTHER, SELFPAY ==
--- NOTE | ~2024-07-10 | XR_ITS ---
CLINICAL HISTORY: M25.519 - Pain in unspecified shoulder 3 view right shoulder Comparison: 11/08/2022 Findings: No fractures or dislocations. No significant loss of joint space or osteophytes. No radiopaque foreign body. Mild degenerative changes. Small osteophytes of the AC joint. Likely tiny geodes. There is mild linear subchondral sclerosis of the greater tuberosity , tiny osteophyte and/or soft tissue calcification adjacent to the greater tuberosity IMPRESSION: No acute fractures or dislocations Degenerative changes as above This document has been electronically signed by: Kin El MD on 07/11/2024 04:41:10
== END 2024-07-10 12:23 | disposition home or self-care (01) ==
LOC: HO.HOSX 12:22
PROVIDERS: Visit Provider Physician Assistant
DX: M25.511 Pain in right shoulder (principal); M54.12 Radiculopathy, cervical region
CPT/HCPCS: 73030; 99202

== ENCOUNTER 2024-08-14 14:55 | Outpatient (REF) | payer OTHER, SELFPAY ==
[2024-08-14 16:13] LABS: MANUAL DIFF FLAG NO
[2024-08-14 16:17] LABS: Basophils Percent Auto 0.3 % (0-2); Eosinophils Percent Auto 0.4 % (0-4); Hematocrit 34.5 % (37.0-47.0); Hemoglobin 11.4 g/dl (12.0-16.0); Imm Gran Abs Auto 0.01 X10*3/uL (0.00-0.03); Imm Gran Pct Auto 0.1 % (0.0-0.4); Lymphocytes Absolute Auto 2.3 X10*3/uL (1.2-4.9); Lymphocytes Percent Auto 33.8 % (20-40); Mean Corpuscular Hemoglobin 28.2 pg (27.0-33.0); Mean Corpuscular Volume 85.4 fL (80.0-98.0); Mean Platelet Volume 10.7 fL (9.4-12.3); Monocytes Absolute Auto 0.4 X10*3/uL (0.1-1.2); Monocytes Percent Auto 6.4 % (2-11); Platelet Count 336 X10*3/uL (160-400); Red Blood Count 4.04 X10*6/uL (4.20-5.50); Red Cell Distribution Width 13.1 % (11.0-16.0); White Blood Count 6.8 X10*3/uL (4.8-10.8)
[2024-08-14 16:39] LABS: Alanine Aminotransferase 16 U/L (0-31); Albumin Level 4.4 g/dL (3.5-5.0); Alkaline Phosphatase 54 U/L (39-117); Anion Gap 10 (12-20); Aspartate Amino Transferase 27 U/L (5-31); Bilirubin Total 0.2 mg/dL (0.0-1.0); Blood Urea Nitrogen 11 mg/dL (9-16); Calcium 9.5 mg/dL (8.4-10.2); Carbon Dioxide 26 mmol/L (22-29); Chloride 105 mmol/L (96-108); Cholesterol 177 mg/dL (<200); Estimated Glomerular Filt Rate > 60; Glucose Random 87 mg/dL (60-115); HDL Cholesterol 35 mg/dL (>40); LDL Cholesterol Calculated 113 mg/dL (<100); Potassium 3.4 mmol/L (3.3-5.1); Sodium 138 mmol/L (135-145); Total Protein 8.1 g/dL (6.5-8.0); Triglycerides 149 mg/dL (<150)
[2024-08-14 16:55] LABS: Reflex LDLD? No
[2024-08-14 18:00] LABS: CT PCR NOT DETECTED (Not Detect.); NG PCR NOT DETECTED (Not Detect.)
[2024-08-15 08:20] LABS: Hepatitis A Antibody IgG REACTIVE (Nonreactive); ~Hepatitis A Antibody IgG 10.03 S/CO (0.00-0.99)
[2024-08-15 08:21] LABS: HBS Num1 0.89 mIU/mL (0-7.99); HBc Num1 0.13 S/CO (0.00-0.79); Hepatitis B Core Antibody Nonreactive (Nonreactive); ~HepC Num1 0.04 S/CO (0.00-0.79); ~Hepatitis B Surface Antibody NONREACTIVE (Nonreactive); ~Hepatitis C Antibody Nonreactive (Nonreactive)
[2024-08-15 08:44] LABS: Varicella IgG Antibody 9.22 S/CO
[2024-08-15 12:53] LABS: HIV RNA PCR Qn Copies 62 copies/mL (NOT DETECTED); HIV RNA PCR Qn Log Copies 1.79 (NOT DETECTED)
[2024-08-17 16:28] LABS: Absolute CD3 Count 1545 cells/uL (840-3060); Absolute CD4 Count 1182 cells/uL (490-1740); Absolute CD8 Count 391 cells/uL (180-1170); Absolute Lymphocytes 2391 cells/uL (850-3900); CD4 CD8 Ratio 3.03 (0.86-5.00); Percent CD3 Cells 65 % (57-85); Percent CD4 Cells 49 % (30-61); Percent CD8 Cells 16 % (12-42)
== END 2024-08-14 14:56 | disposition home or self-care (01) ==
LOC: HO.HHCL 14:55
PROVIDERS: Visit Provider Internal Medicine
DX: Z21 Asymptomatic human immunodeficiency virus [HIV] infection status (principal)
CPT/HCPCS: 80053; 80061; 82550; 85025; 86359; 86360; 86704; 86706; 86708; 86735; 86762; 86765; 86787; 86803; 87491; 87536; 87591

== ENCOUNTER 2024-09-06 09:29 | Outpatient (AMB) | payer OTHER, SELFPAY ==
[2024-09-06 09:50] VITALS: BMI 41.0
--- NOTE | 2024-09-06 09:50 | A.OFFVIS_ITS ---
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 States pain started about 4-5 months ago and has not improved. States pain radiates to her right shoulders. Pain is worse in the mornings, states she feels stiffness. Patient has tried she has tried muscle relaxers that was given at Urgent care about 3-4 months ago and ibuprofen helped to manage her pain. She is also having numbness in her right hand that is omn and off. Denies injury. Patient referred from Dr Josiane Roman Allergies No Known Allergies Allergy (Verified 09/06/24 09:58) HPI Comments Details: Patient can't tell whether pain is shoulder or neck, no specific injury. 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 Or perhaps if she slept wrong. Had stiff neck 2-3 months ago, went to urgent care, treated with muscle relaxer and ibuprofen. Lasted for a week. Now resolved. Wakes up numb on right hand sometimes, coz she slept over it. When cold, right hand turns purple. Only happened one time though. Points more AC area and maybe trapezius. Not radiating. Today she is already doing much better. 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 Patient was appropriately conversant and oriented. Good historian. MSK: Inspection reveals appropriate head and neck positioning. No pain with palpation over the neck musculature. Did note tightness on bilateral upper trapezius. Cervical ROM was full. Spurling's sign negative. Bilateral shoulder, elbow and wrist ROM WNL. No ligamentous laxity or crepitance. No increased effusion. No specific abnormalities or instability found on inspection and palpation of th e spine and extremities. Strength is 5/5 in all muscle groups tested. No increased tone noted. Neurological: Mood appears normal, good affect, and appropriate for the circumstances. Neurologic examination of the upper and lower extremities was nonfocal with intact sensation, muscle stretch reflexes and without focal motor deficits. Hartley?s negative bilaterally. Gait is non-antalgic without loss of balance. Results Reviewed Results Reviewed: Ordering Physician: Brionna Zhang PA-C Date of Service: 07/10/24 Procedure(s): XR shoulder RT min 2V Accession Number(s): [id number] cc: Brionna Zhang PA-C~ CLINICAL HISTORY: M25.519 - Pain in unspecified shoulder 3 view right shoulder Comparison: 11/08/2022 Findings: No fractures or dislocations. No significant loss of joint space or osteophytes. No radiopaque foreign body. Mild degenerative changes. Small osteophytes of the AC joint. Likely tiny geodes. There is mild linear subchondral sclerosis of the greater tuberosity , tiny osteophyte and/or soft tissue calcification adjacent to the greater tuberosity IMPRESSION: No acute fractures or dislocations Degenerative changes as above Reviewed notes from ortho. Assessment & Plan Assessment & Plan (1) Myofascial pain: Code(s): M79.18 - Myalgia, other site Category: Medical Plan Patient probably had about of myofascial pain causing neck stiffness and trapezius pain. This is all improved now. Pointed out to her that her trapezius or tight and that can be aggravated by stress and poor posture. Patient to watch out for recurrence. May apply heat or ice if it happens. No further workup or treatment from me at this time. Assessment and plan discussed with patient, and patient was agreeable. All quest ions were answered thoroughly. Makenna Pavon MD, AUDREY Board Certified, [place] [employer] (ABPMR) Board Certified, [place] [employer] (ABEM) Coding Level of Care Code New Pt Level 3 (26512) Diagnoses Myofascial pain M79.18
== END 2024-09-06 10:19 | disposition home or self-care (01) ==
LOC: HO.HOS 09:29
PROVIDERS: PCP Student in an Organized Health Care Education/Training Program; Visit Provider Physical Medicine & Rehabilitation
DX: M54.2 Cervicalgia (principal); M79.18 Myalgia, other site
CPT/HCPCS: 99203

== ENCOUNTER → 2024-09-06 09:29 | Outpatient (BNVA) | payer OTHER, SELFPAY | PROVIDERS: PCP Student in an Organized Health Care Education/Training Program; Visit Provider Physical Medicine & Rehabilitation | DX: M79.18 Myalgia, other site (principal) | CPT/HCPCS: 99202 ==

== ENCOUNTER 2025-03-08 15:32 | Outpatient (REF) | payer OTHER, SELFPAY ==
[2025-03-08 16:06] LABS: MANUAL DIFF FLAG NO
[2025-03-08 16:15] LABS: Hematocrit 31.6 % (37.0-47.0); Hemoglobin 10.8 g/dl (12.0-16.0); Imm Gran Abs Auto 0.01 X10*3/uL (0.00-0.03); Imm Gran Pct Auto 0.1 % (0.0-0.4); Lymphocytes Absolute Auto 2.3 X10*3/uL (1.2-4.9); Mean Corpuscular HGB Conc 34.2 g/dl (31.0-35.0); Mean Corpuscular Hemoglobin 28.8 pg (27.0-33.0); Mean Corpuscular Volume 84.3 fL (80.0-98.0); NRBC Abs Auto 0.000 X10*3/uL (0.0-0.012); NRBC Pct Auto 0.0 /100WBC (0.0-0.2); Platelet Count 350 X10*3/uL (160-400); Red Blood Count 3.75 X10*6/uL (4.20-5.50); White Blood Count 6.8 X10*3/uL (4.8-10.8)
[2025-03-08 16:39] LABS: Alanine Aminotransferase 14 U/L (0-31); Albumin Level 4.6 g/dL (3.5-5.0); Alkaline Phosphatase 62 U/L (39-117); Anion Gap 10 (12-20); Aspartate Amino Transferase 24 U/L (5-31); Blood Urea Nitrogen 9 mg/dL (9-16); Calcium 9.0 mg/dL (8.4-10.2); Carbon Dioxide 28 mmol/L (22-29); Chloride 106 mmol/L (96-108); Estimated Glomerular Filt Rate > 60; Potassium 3.8 mmol/L (3.3-5.1); Sodium 140 mmol/L (135-145); Total Protein 7.4 g/dL (6.5-8.0)
[2025-03-09 16:33] LABS: HIV RNA PCR Qn Copies <20 DETECTED copies/mL (NOT DETECTED); HIV RNA PCR Qn Log Copies <1.30 DETECTED (NOT DETECTED)
[2025-03-11 09:16] LABS: Iron 38 mcg/dL (30-160); Percent Iron Saturation 16 % (15-50); Total Iron Binding Capacity 235 mcg/dL (228-428); Unsaturated Iron Binding 197 ug/dL
== END 2025-03-08 15:33 | disposition home or self-care (01) ==
LOC: HO.HHCL 15:32
PROVIDERS: PCP Student in an Organized Health Care Education/Training Program; Visit Provider Student in an Organized Health Care Education/Training Program
DX: Z21 Asymptomatic human immunodeficiency virus [HIV] infection status (principal)
CPT/HCPCS: 36415; 80053; 83540; 85025; 87536

== ENCOUNTER → 2025-06-11 16:00 | Outpatient (BNV) | payer OTHER, SELFPAY | PROVIDERS: PCP Internal Medicine; Visit Provider Internal Medicine | DX: Z12.31 Encounter for screening mammogram for malignant neoplasm of breast (principal) | CPT/HCPCS: 77063; 77067 ==

== ENCOUNTER 2025-06-11 16:03 | Outpatient (REF) | payer OTHER, SELFPAY | END 2025-06-11 16:04 | disposition home or self-care (01) | LOC: HO.MAMMO 16:03 | PROVIDERS: PCP Internal Medicine; Visit Provider Internal Medicine | DX: Z12.31 Encounter for screening mammogram for malignant neoplasm of breast (principal) | CPT/HCPCS: 77063; 77067 ==